=== PATIENT | female | born 2000 | race Two or more races ===

== ENCOUNTER → 2024-07-30 | Emergency (ER) | payer OTHER ==
[~2024-07-30] VITALS: Ht 157.5 cm; Wt 47.6 kg
[~2024-07-30] MED LIST: 0.9 % SODIUM CHLORIDE 500 ML IV ONE; PROPRANOLOL HCL 60 MG TABLET PO ONE; TAPAZOLE5 MG; hydrOXYzine PAMOATE 25 MG CAPSULE PO ONE
[2024-07-30 15:37] LABS: HEMATOCRIT 39.3 % (36.0-45.00); HEMOGLOBIN 13.7 g/dL (12.0-15.00); MEAN CELL VOLUME 81.5 fL (80.00-100.00); MEAN CORPUSCULAR HEMOGLOBIN 28.5 pg (27.00-32.0); PLATELET COUNT 324 K/uL (150-450); RED BLOOD COUNT 4.82 M/uL (4.00-6.00); RED CELL DISTRIBUTION WIDTH 12.4 % (11.5-14.5)
[2024-07-30 16:31] LABS: ALBUMIN 3.8 gm/dL (3.4-5.0); ALKALINE PHOSPHATASE 217 U/L (50-136); ALT/SGPT 36 U/L (12-78); ANION GAP 8 (10.0-20.0); AST/SGOT 23 U/L (15-37); BILIRUBIN TOTAL 0.53 mg/dL (0.3-1.2); BLOOD UREA NITROGEN 6 mg/dL (7-18); BUN CREA RATIO 15 (7.0-25.0); CALCIUM 9.5 mg/dL (8.5-10.1); CARBON DIOXIDE 27 mEq/L (21-32); CHLORIDE 111 mmol/L (98-107); CREATININE SERUM 0.41 mg/dL (0.55-1.02); GFR 189.02; GLUCOSE FASTING 90 mg/dL (65-100); OSMOLALITY SERUM 280 MOSM/KG (275-295); POTASSIUM 3.57 mEq/L (3.5-5.1); SODIUM 142 mmol/L (136-145); TOTAL PROTEIN 6.8 gm/dL (6.4-8.2)
[2024-07-30 16:33] LABS: TSH < 0.005 uIU/mL (0.358-3.74)
== END | disposition left against medical advice (07) ==
LOC: ER 12:50
PROVIDERS: Emergency Medicine
DX: R07.89 Other chest pain (principal); F41.8 Other specified anxiety disorders; E05.80 Other thyrotoxicosis without thyrotoxic crisis or storm; R00.0 Tachycardia, unspecified